=== PATIENT | female | born 1965 | race Caucasian/White ===

== ENCOUNTER 2020-11-17 09:34 | Day surgery (SDC) | payer BC ==
[~2020-11-17] VITALS: Ht 160.1 cm; Wt 89.0 kg
[~2020-11-17 09:34] MED LIST: AMBIEN10 MG PO; ASPIRIN 32325 MG/TAB PO; BENADRYL50 MG PO
[2020-11-17] MEDS ORDERED: RESTORIL 1515 MG/CAP PO (10:08)
[2020-11-17] MEDS ORDERED: EFFEXOR XR75 MG/CAP PO (10:08)
[2020-11-17] MEDS ORDERED: TOPROL XL 50MG50 MG PO (10:09)
[2020-11-17] MEDS ORDERED: SINGULAIR 110 MG/TAB PO (10:10)
[2020-11-17] MEDS ORDERED: WELLBUTRIN XL150 MG PO (10:10)
[2020-11-17] MEDS ORDERED: LASIX 20MG TABL20 MG PO (10:11)
[2020-11-17] MEDS ORDERED: FLEXERIL 1010 MG/TAB PO (10:11)
[2020-11-17] MEDS ORDERED: LIPITOR 40MG TA40 MG PO (10:12)
[2020-11-17] MEDS ORDERED: PRIL40 PO (10:12)
[2020-11-17 10:23] VITALS: BP 132/68; PULSE 78; TEMP 98.1
--- NOTE | 2020-11-17 10:43 | NUR ---
PT TO SURGERY WITH PIERRE. ASSESSMENTS COMPLETE.
--- NOTE | 2020-11-17 13:48 | NUR ---
DISCHARGE INSTRUCTIONS REWIEW WITH SHADI PT TAKEN TO FRONT IN WHEEL CHAIR.
[2020-11-17 14:30] VITALS: BP 102/49; PULSE 65; TEMP 98
[2020-11-17 14:45] VITALS: BP 102/49; PULSE 63; TEMP 98
[2020-11-17 15:00] VITALS: BP 103/55; PULSE 64; TEMP 98
--- NOTE | 2020-11-17 16:50 | NUR ---
PT HAS MET DISCHARGE CRITERIA. PT TAKEN OUT PER WHEEL CHAIR.
== END 2020-11-17 16:58 | disposition home or self-care (01) ==
LOC: SDCO 09:34 → JCC 09:34 → SDCO 11:30 → JCC 13:50 → SDCO 13:50
DX: M75.101 Unspecified rotator cuff tear or rupture of right shoulder, not specified as traumatic (principal); M75.21 Bicipital tendinitis, right shoulder; M65.811 Other synovitis and tenosynovitis, right shoulder; T88.59XS Other complications of anesthesia, sequela; K21.9 Gastro-esophageal reflux disease without esophagitis; M19.011 Primary osteoarthritis, right shoulder; K21.00 Gastro-esophageal reflux disease with esophagitis, without bleeding; F32.9 Major depressive disorder, single episode, unspecified; Z20.822 Contact with and (suspected) exposure to COVID-19; I49.1 Atrial premature depolarization; Z79.82 Long term (current) use of aspirin; Z79.890 Hormone replacement therapy; Z85.3 Personal history of malignant neoplasm of breast; Z92.21 Personal history of antineoplastic chemotherapy; Z92.3 Personal history of irradiation; Z53.33 Arthroscopic surgical procedure converted to open procedure
CPT/HCPCS: OP; A4619; C1713; J0690; J2250; J2405; J2704; J2795; J3010; J7120

== ENCOUNTER 2021-07-15 12:54 | Emergency (ER) | payer BC ==
[~2021-07-15] VITALS: Ht 160 cm; Wt 113.6 kg
[~2021-07-15 12:54] MED LIST changes: +EFFEXOR XR75 MG/CAP PO; +FLEXERIL 1010 MG/TAB PO; +LASIX 20MG TABL20 MG PO; +LIPITOR 40MG TA40 MG PO; +PRIL40 PO; +RESTORIL 1515 MG/CAP PO; +SINGULAIR 110 MG/TAB PO; +TOPROL XL 50MG50 MG PO; +WELLBUTRIN XL150 MG PO
[2021-07-15 13:07] VITALS: TEMP 98.5
[2021-07-15 13:43] LABS: BASO % 0.2 % (0.0-2.0); EOS # 0.1 K/mm3 (0.0-0.7); EOS % 1.8 % (0-4.0); GRAN # 3.2 K/mm3 (1.4-6.5); GRAN % 59.5 % (42.2-75.2); HEMATOCRIT 42.7 % (37.0-47.0); HEMOGLOBIN 13.9 g/dl (12.5-16.0); LYMPH # 1.6 K/mm3 (1.2-3.4); LYMPH % 29.7 % (20.0-51.0); MEAN CELL VOLUME 87 fl (80.0-100.0); MEAN CORPUSCULAR HEMOGLOBIN 28 pg (27.0-31.0); MEAN CORPUSCULAR HGB CONC 33 g/dl (33.0-37.0); MEAN PLATELET VOLUME 8.8 fl (7.4-10.4); MONO # 0.5 K/mm3 (0.1-0.6); MONO % 8.6 % (1.7-9.3); PLATELET COUNT 249 K/mm3 (130-400); RED BLOOD COUNT 4.89 M/mm3 (4.10-5.30); REDCELL DISTRIBUTION WIDTH-CV 13.5 % (11.5-14.5)
[2021-07-15 14:01] LABS: ALBUMIN 3.1 gm/dL (3.5-5.0); BILIRUBIN,TOTAL 0.3 mg/dL (0.2-1.2); C-REACTIVE PROTEIN 6.5 mg/dL (0.00-0.50); CALCIUM 9.3 mg/dL (8.4-10.2); CREATININE, serum 0.84 mg/dL (0.57-1.11); POTASSIUM 3.5 mmol/L (3.5-4.5); TOTAL PROTEIN 7.1 gm/dL (6.2-8.1)
[2021-07-15 14:18] LABS: COLLECTION METHOD CLEAN CATCH
[2021-07-15 14:28] LABS: MUCOUS Present /lpf; PH 5 (5-8); SQUAMOUS EPITHELIAL 0-2 /hpf; URINE APPEARANCE Clear; URINE BACTERIA None Seen /hpf; URINE BILIRUBIN Negative (NEGATIVE); URINE BLOOD 1+ (NEGATIVE); URINE COLOR Yellow; URINE GLUCOSE Negative (NEGATIVE); URINE KETONE Negative (NEGATIVE); URINE LEUKOCYTE ESTERASE 2+ (NEGATIVE); URINE NITRATE Negative (NEGATIVE); URINE PROTEIN(semi-quant) Negative (NEGATIVE)
[2021-07-15] MEDS ORDERED: ZOFRAN ODT4 MG PO (16:02)
[2021-07-15 16:50] VITALS: BP 128/71; PULSE 85
== END 2021-07-15 16:50 | disposition home or self-care (01) ==
LOC: COL.ER 12:54
PROVIDERS: Emergency Medicine
DX: B34.9 Viral infection, unspecified (principal); Z90.49 Acquired absence of other specified parts of digestive tract; Z20.822 Contact with and (suspected) exposure to COVID-19
CPT/HCPCS: J2405; J7030; Q9967

== ENCOUNTER 2022-04-04 10:03 | Day surgery (SDC) | payer BC ==
[~2022-04-04] VITALS: Ht 158.8 cm; Wt 116.4 kg
[2022-04-04] VITALS (8 sets, daily range): BP systolic 96–133; BP diastolic 53–84; PULSE 73–80; TEMP 97–98.1
[~2022-04-04 10:03] MED LIST changes: +ZOFRAN ODT4 MG PO
[2022-04-04] MEDS ORDERED: MELATONIN ER10 MG PO (12:22)
[2022-04-04] MEDS ORDERED: ESTRACE 1MG1 MG/TAB PO (12:25)
[2022-04-04] MEDS ORDERED: EFFEXOR100 MG PO (12:41)
--- NOTE | 2022-04-04 16:15 | NUR ---
DROWSY, AROUSES SPONTANEOUSLY. RESP CLEAR, NON LABORED. DEEP BREATHING ENCOURAGED. BULKY DRESSING RIGHT SHOULDER CLEAN DRY AND INTACT. ADMITS TO MILD "BURNING" SENSATION RIGHT SHOULDER. HERE.
--- NOTE | 2022-04-04 16:45 | NUR ---
PATIENT TOLERATES PO MUFFIN AND SODA WITHOUT NAUSEA. SWALLOWS WITHOUT DIFFICULTY.
--- NOTE | 2022-04-04 17:19 | NUR ---
AMBULATES TO BATHROOM WITH STAND BY ASSIST. VOIDS. ASSISTS PATIENT TO DRESS.
== END 2022-04-04 17:30 | disposition home or self-care (01) ==
LOC: SDCO 10:03
DX: S46.011A Strain of muscle(s) and tendon(s) of the rotator cuff of right shoulder, initial encounter (principal); X58.XXXA Exposure to other specified factors, initial encounter; Y93.9 Activity, unspecified; Y92.9 Unspecified place or not applicable
CPT/HCPCS: A4619; C1713; J0690; J1100; J2250; J2405; J2704; J2765; J2795; J3010; J7120

== ENCOUNTER 2022-05-13 13:09 | Emergency (ER) | payer BC ==
[~2022-05-13] VITALS: Ht 157.5 cm; Wt 113.6 kg
[~2022-05-13 13:09] MED LIST changes: +EFFEXOR100 MG PO; +ESTRACE 1MG1 MG/TAB PO; +MELATONIN ER10 MG PO
[2022-05-13 13:26] VITALS: TEMP 98.5
[2022-05-13 16:00] VITALS: BP 123/65; PULSE 76
== END 2022-05-13 16:00 | disposition home or self-care (01) ==
LOC: COL.ER 13:09
DX: M79.662 Pain in left lower leg (principal)